=== PATIENT | female | born 1945 | race Caucasian/White ===

== ENCOUNTER 2016-08-12 17:29 | Emergency (ER) | payer MEDICARE, BC ==
[2016-08-12 17:38] VITALS: BP 163/73
[2016-08-12] MEDS ORDERED: Albuterol/Ipratropium 3.0-0.5 MG/3 ML Neb Soln NEB ONE ×2 (18:44→22:30)
[2016-08-12] MEDS ORDERED: Sodium Chloride 0.9% 10 ML Syringe FLUSH PRN (18:44)
[2016-08-12] MEDS ORDERED: predniSONE 20 MG Tab PO ONE (20:51)
--- NOTE | 2016-08-12 21:05 | EDM.PDOC ---
ED HISTORY OF PRESENT ILLNESS - General Chief Complaint: Respiratory Problem Stated Complaint: SOB Time Seen by Provider: 08/12/16 19:03 Source of Information: Reports: Patient, Family (sister) History Limitations: Reports: No limitations - History of Present Illness INITIAL COMMENTS - FREE TEXT/NARRATIVE: Patient presents for evaluation and treatment of shortness of breath. Patient has been short of breath for quite some time. She reports over the last 3 days consistently been worsening. She was seen at the [facility] recently. She was prescribed some antibiotics, nebulizers and prednisone. She started the antibiotics but has not started the prednisone as of yet. She does not feel that the nebulizers are working. She has a past medical history of COPD. Patient reports current symptoms of a nonproductive cough, wheezing and shortness of breath. She denies any fevers, chills, chest pain, abdominal pain, nausea or vomiting. Patient present she did have a chest x-ray done when she saw her primary care provider. No pneumonia evident. She is concerned tonight that she is made to develop a pneumonia. - Related Data Allergies/ADRs: Allergies Allergy/AdvReac Type Severity Reaction Status Date / Time milk Allergy Cannot Verified 08/12/16 17:38 Remember Penicillins Allergy Hives Verified 08/12/16 17:38 codeine AdvReac Disorientat Verified 08/12/16 17:38 ion Home Meds: Home Meds Calcium Carbonate/Vitamin D3 [Calcium 600 + Vit D Tablet] 1 tab PO DAILY [History] FLUoxetine HCl [Prozac] 10 mg PO DAILY 09/01/14 [History] Ferrous Gluconate 2 tab PO DAILY 09/01/14 [History] Losartan Potassium 100 mg PO DAILY 09/01/14 [History] Nortriptyline HCl [Pamelor] 20 mg PO BEDTIME 09/01/14 [History] Sennosides/Docusate Sodium [Cvs Stool Softener-Laxative Tb] 1 tab PO DAILY PRN 09/01/14 [History] Simvastatin [Zocor] 20 mg PO BEDTIME 09/01/14 [History] Thioridazine [Mellaril] 100 mg PO DAILY 09/01/14 [History] metFORMIN [Glucophage] 500 mg PO BIDM 09/01/14 [History] traZODone 50 mg PO BEDTIME 09/01/14 [History] Albuterol Sulfate 2.5 mg IH Q4HR PRN 08/12/16 [History] Azithromycin [Zithromax] 250 mg PO DAILY 08/12/16 [History] Benzonatate [Tessalon Perles] 200 mg PO TID #12 cap 08/13/16 [Rx] Past Medical History HEENT History: Reports: Allergic rhinitis, Sinusitis Cardiovascular History: Reports: High cholesterol, Hypertension Respiratory History: Reports: Bronchitis, recurrent, Other (see below) Other Respiratory History: cough Gastrointestinal History: Reports: Chronic constipation, GERD Genitourinary History: Reports: UTI, recurrent Other Genitourinary History: abnormal kidney function, elevated BUN Other OB/BYN History: breast enlargement Other Musculoskeletal History: chronic neck pain with limited CROM Psychiatric History: Reports: Anxiety, Depression Endocrine/Metabolic History: Reports: Diabetes, type II, Hypothyroidism Hematologic History: Reports: Anemia Other Dermatologic History: perianal excoriation, schamberg's capillaritis - Past Surgical History HEENT Surgical History: Reports: Tonsillectomy GI Surgical History: Reports: Appendectomy, Hernia repair/other Social & Family History - Family History Family Medical History: Noncontributory - Tobacco Use Smoking Status *Q: Former Smoker Years of Tobacco use: 40 Used Tobacco, but Quit: Yes Month Tobacco Last Used: 5 YEARS AGO Second Hand Smoke Exposure: No - Alcohol Use Days Per Week of Alcohol Use: 0 Number of Drinks Per Day: 0 Total Drinks Per Week: 0 - Recreational Drug Use Recreational Drug Use: No Drug Use in Last 12 Months: No ED ROS GENERAL - Review of Systems Review Of Systems: See Below Constitutional: Denies: fever Respiratory: Reports: Shortness of Breath, Wheezing, Cough. Denies: Sputum Cardiovascular: Reports: Orthopnea. Denies: Chest pain GI/Abdominal: Denies: Abdominal pain, Nausea, Vomiting ED EXAM, GENERAL - Physical Exam Exam: See Below Exam Limited By: No limitations General Appearance: alert, WD/WN, mild distress, obese Ears: normal external exam Nose: normal inspection Throat/Mouth: Normal inspection, Normal voice Neck: normal inspection Respiratory/Chest: lungs clear, no accessory muscle use, stridor Cardiovascular: normal peripheral pulses, regular rate, rhythm, no murmur Neurological: alert, oriented, normal cognition Psychiatric: normal affect, normal mood Skin Exam: Warm, Dry, Normal color Course - Vital Signs Last Recorded V/S: Last Vital Signs Temp Pulse 94 08/12/16 17:34 Resp 24 H 08/12/16 17:34 BP 163/73 H 08/12/16 17:34 Pulse Ox 95 08/12/16 22:30 - Orders/Labs/Meds Labs: Laboratory Tests 08/12/16 08/12/16 Range/Units 18:40 18:40 WBC 4.72 (3.98-10.04) K/mm3 RBC 3.83 L (3.98-5.22) M/mm3 Hgb 11.2 (11.2-15.7) gm/L Hct 35.3 (34.1-44.9) % MCV 92.2 (79.4-94.8) fl MCH 29.2 (25.6-32.2) pg MCHC 31.7 L (32.2-35.5) g/dl RDW Std Deviation 44.7 (36.4-46.3) fL Plt Count 166 L (182-369) K/mm3 MPV 10.5 (9.4-12.3) fl Neut % (Auto) 62.3 (34.0-71.1) % Lymph % (Auto) 19.9 (19.3-51.7) % [place] % (Auto) 10.0 (4.7-12.5) % Eos % (Auto) 6.4 H (0.7-5.8) Baso % (Auto) 0.8 (0.1-1.2) % Neut # 2.94 (1.56-6.13) K/mm3 Lymph # 0.94 L (1.18-3.74) K/mm3 [place] # 0.47 H (0.24-0.36) K/mm3 Eos # 0.30 (0.04-0.36) K/mm3 Baso # 0.04 (0.01-0.08) K/mm3 Sodium 138 (136-145) mEq/L Potassium 4.5 (3.5-5.1) mEq/L Chloride 105 (98-107) mEq/L Carbon Dioxide 25 (21-32) mEq/L Anion Gap 12.5 (5-15) BUN 16 (7-18) mg/dL Creatinine 1.2 H (0.55-1.02) mg/dL Est Cr Clr Drug Dosing 33.52 mL/min Estimated GFR (MDRD) 44 (>60) mL/min BUN/Creatinine Ratio 13.3 L (14-18) Glucose 122 H (83-115) mg/dL Calcium 9.0 (8.5-10.1) mg/dL Total Bilirubin 0.3 (0.2-1.0) mg/dL AST 17 (15-37) U/L ALT 27 (14-59) U/L Alkaline Phosphatase 65 (46-116) U/L C-Reactive Protein < 0.2 (<1.0) mg/dL Total Protein 7.5 (6.4-8.2) g/dl Albumin 3.9 (3.4-5.0) g/dl Globulin 3.6 gm/dL Albumin/Globulin Ratio 1.1 (1-2) Mycoplasma pneumon IgM Negative (NEGATIVE) Meds: Medications Discontinued Medications Generic Name Dose Route Start Last Admin Trade Name Freq PRN Reason Stop Dose Admin Albuterol/Ipratropium 3 ml 08/12/16 18:44 08/12/16 18:53 Duoneb 3.0-0.5 Mg/3 Ml NEB 08/12/16 18:45 3 ml ONETIME ONE Administration Albuterol/Ipratropium 3 ml 08/12/16 22:30 08/12/16 22:44 Duoneb 3.0-0.5 Mg/3 Ml NEB 08/12/16 22:31 3 ml ONETIME ONE Administration Benzonatate 200 mg 08/12/16 21:34 08/12/16 21:45 Tessalon Perles PO 08/12/16 21:35 200 mg ONETIME ONE Administration Sodium Chloride 500 mls @ 999 mls/hr 08/12/16 22:46 08/12/16 22:52 Normal Saline IV 08/12/16 23:16 999 mls/hr ONETIME ONE Administration Iopamidol 80 ml 08/12/16 22:36 Isovue-370 (76%) IVPUSH 08/12/16 22:37 ONETIME ONE Prednisone 40 mg 08/12/16 20:51 08/12/16 20:57 Prednisone PO 08/12/16 20:52 40 mg ONETIME ONE Administration Sodium Chloride 10 ml 08/12/16 18:44 08/12/16 18:50 Saline Flush FLUSH 10 ml ASDIRECTED PRN Administration Keep Vein Open - Radiology Interpretation Free Text/Narrative:: chest xray shows a widened mediastinum and and enlarged heart. no consolidations. No change from recent xray. CT of the soft tissues with contrast impression per [facility]: there is a large substernal right thyroid lobe with extension with enhancement. Enhancement and scattered calcifications with heterogeneous enhancement with the lobulation and enhancement are of some concern for neoplasm. Surgical consult recommended, ultrasound suggested for treating a potential future biopsy. - Re-Assessments/Exams Free Text/Narrative Re-Assessment/Exam: 08/12/16 00:34 Patient's labs are as follows: White blood cell count 4.72, hemoglobin 11.2, platelets 166. CRP less than 0.2. Sodium 138, potassium 4.5 chloride 105. Creatinine 1.2. Glucose is 122. Mycoplasma is negative. Influenza is negative. I was about to discharge the patient home and have her continue with her current nebulizers, antibiotics and prednisone as prescribed. However, I was very concerned with the straighter sound that she has. We then ordered a CT of the neck. I reviewed these results with the patient. She was aware of the large thyroid goiter and states that they have been monitoring it. She has not had a biopsy performed as of yet. I feel like this is likely causing her stridor. As for her shortness of breath and this is more likely also related to the large thyroid goiter. she is scheduled to see pulmonology I feel that is a good plan as well given her history. I would also like her to followup with her primary care provider about the goiter. I asked the patient she feels comfortable going home and she states that she does. If she would like to go home at this time. I did offer her inpatient admission which she declined. Will discharge home at this time. Discharge instructions assessment Departure - Departure Time of Disposition: 00:37 Disposition: Home, Self-Care 01 Condition: fair Clinical Impression: Thyroid goiter Prescriptions: Benzonatate [Tessalon Perles] 200 mg PO TID #12 cap Instructions: Goiter Referrals: Deirdre Lilly, [employer]EL[employer] [Primary Care Provider] - Forms: ED Department Discharge Additional Instructions: Hold metformin next 2 days. Continue with current plan of care. Continue on prednisone and azithromycin as prescribed. Follow-up with Deirdre this week. Tessalon perles 1 cap PO tid prn cough. Please return to the ER should your symptoms change or worsen.
[2016-08-12] MEDS ORDERED: Benzonatate 100 MG Cap PO ONE (21:34)
[2016-08-12] MEDS ORDERED: Iopamidol 755 Mg/ML 100 ML Bottle IVPUSH ONE (22:36)
[2016-08-12] MEDS ORDERED: Sodium Chloride 0.9% 500 ML IV ONE (22:46)
--- NOTE | 2016-08-13 08:18 | CT ---
CT neck Technique: Multiple axial sections through the neck were obtained. Intravenous contrast was utilized. Reconstructed sagittal and coronal images were reviewed. Comparison: Previous thyroid ultrasound exam of 03/06/16. Findings: Goitrous enlargement seen of the right lobe of the thyroid gland containing calcifications. Inferior extent is incompletely included on this exam with AP dimension measuring approximately 5.3 cm and transverse dimension measuring approximately 5.5 cm. This causes some displacement of the trachea to the left and anterior side as well as causing some narrowing. Mild mucosal thickening seen within portions of the ethmoid sinuses. Mild mucosal thickening noted within the left maxillary sinus. No air-fluid levels are seen within the sinuses. Parotid salivary glands and submandibular salivary glands are unremarkable. Visualized lung apices are clear. No adenopathy or neck mass is seen. Bone window settings were reviewed which show scattered degenerative change within the spine. Impression: 1. 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 Prior ultrasound showed nodular change within the thyroid gland but I believe the substernal location made this goiter invisible on prior ultrasound exam. 2. Other findings which are felt to be incidental seen on CT study of the neck. Diagnostic code #3 Agree with preliminary report issued by [facility] (preliminary [facility] report dictated on 08/13/16, 1:25 AM Central Time)
--- NOTE | 2016-08-13 08:18 | CR ---
Chest: Two views of the chest were obtained. Comparison: Previous chest x-ray of 08/09/16. Heart is enlarged. Tortuous thoracic aorta is seen. Widening of the upper mediastinum is seen which is stable. Lungs are clear but hyperinflated compatible with emphysematous change. No acute pulmonary vascular congestion or infiltrates are seen. Bony structures are osteopenic. Impression: 1. Stable chest x-ray from prior exam. 2. Nothing acute is appreciated. Diagnostic code #2
== END 2016-08-13 00:51 | disposition home or self-care (01) ==
LOC: JD.ED 17:29
DX: E04.9 Nontoxic goiter, unspecified (principal); I10 Essential (primary) hypertension; E78.00 Pure hypercholesterolemia, unspecified; K21.9 Gastro-esophageal reflux disease without esophagitis; F41.8 Other specified anxiety disorders; E11.9 Type 2 diabetes mellitus without complications; E03.9 Hypothyroidism, unspecified; D64.9 Anemia, unspecified; Z90.49 Acquired absence of other specified parts of digestive tract; Z87.891 Personal history of nicotine dependence; Z98.890 Other specified postprocedural states; Z79.84 Long term (current) use of oral hypoglycemic drugs; Z79.2 Long term (current) use of antibiotics; Z79.899 Other long term (current) drug therapy; Z88.0 Allergy status to penicillin; Z88.5 Allergy status to narcotic agent; Z91.011 Allergy to milk products
CPT/HCPCS: 36415; 70491; 71020; 80053; 85025; 86140; 86738; 87804; 94640; 94664; 96360; 99285; A9270; J7040; J7050; 99284

== ENCOUNTER 2019-11-19 13:59 | Emergency (ER) | payer MEDICARE, BC ==
--- NOTE | 2019-11-19 14:12 | EDM.PDOC ---
ED HPI GENERAL MEDICAL PROBLEM - General Chief Complaint: Cardiovascular Problem Stated Complaint: [facility] Time Seen by Provider: 11/19/19 14:04 - History of Present Illness INITIAL COMMENTS - FREE TEXT/NARRATIVE: 74-year-old female presents the emergency room brought in by [facility] with dizziness nausea vomiting and a low pulse. She was not medicated in route because of the relative risk of bradycardia with Zofran. They did call about 30 minutes prior to arrival and discuss situation with me as to whether they should treat the bradycardia or not they inform me the patient was actually doing well and did not mention that she vomited twice in route. Ever I recommended not treating the bradycardia as I was under the impression she was doing well. Patient informs me the patient was doing well this morning until about 10:00 she says she had bananas and coffee for breakfast. Around 10:00 she developed nausea and vomiting and some dizziness. Her pulse was found to be in the 40s she was not having any associated chest pain or breathing difficulties with this. The patient has some lower extremity edema but this is not new for her. She is not aware of ever having a prior heart attack or stroke - Related Data Allergies Allergy/AdvReac Type Severity Reaction Status Date / Time milk Allergy Cannot Verified 08/12/16 17:38 Remember Penicillins Allergy Hives Verified 08/12/16 17:38 codeine AdvReac Severe Disorientat Verified 11/19/19 14:11 ion Home Meds: Home Meds Calcium Carbonate/Vitamin D3 [Calcium 600 + Vit D Tablet] 1 tab PO DAILY 09/01/14 [History] FLUoxetine HCl [Prozac] 10 mg PO DAILY 09/01/14 [History] Ferrous Gluconate 2 tab PO DAILY 09/01/14 [History] Losartan Potassium 100 mg PO DAILY 09/01/14 [History] Nortriptyline HCl [Pamelor] 50 mg PO BEDTIME 09/01/14 [History] Sennosides/Docusate Sodium [Cvs Stool Softener-Laxative Tb] 1 tab PO DAILY PRN 09/01/14 [History] Simvastatin [Zocor] 20 mg PO BEDTIME 09/01/14 [History] metFORMIN [Glucophage] 500 mg PO BIDM 09/01/14 [History] FLUoxetine [PROzac] 10 mg PO DAILY 11/19/19 [History] Furosemide 40 mg PO DAILY 11/19/19 [History] Ibandronate Sodium 150 mg PO DAILY 11/19/19 [History] Potassium Chloride 10 meq PO DAILY 11/19/19 [History] Temazepam 15 mg PO DAILY 11/19/19 [History] haloperidoL [Haloperidol] 10 mg PO DAILY 11/19/19 [History] hydrOXYzine pamoate [Hydroxyzine Pamoate] 50 mg PO DAILY 11/19/19 [History] Past Medical History HEENT History: Reports: Allergic Rhinitis, Sinusitis Cardiovascular History: Reports: High Cholesterol, Hypertension Respiratory History: Reports: Bronchitis, Recurrent, Other (See Below) Other Respiratory History: cough Gastrointestinal History: Reports: Chronic Constipation, GERD Genitourinary History: Reports: UTI, Recurrent Other Genitourinary History: abnormal kidney function, elevated BUN Other [employer] History: breast enlargement Other Musculoskeletal History: chronic neck pain with limited CROM Psychiatric History: Reports: Anxiety, Depression Endocrine/Metabolic History: Reports: Diabetes, Type II, Hypothyroidism Hematologic History: Reports: Anemia Other Dermatologic History: perianal excoriation, schamberg's capillaritis - Past Surgical History GI Surgical History: Reports: Appendectomy, Hernia Repair/Other Female Surgical History: Reports: Hysterectomy, Tubal Ligation Social & Family History - Family History Family Medical History: Noncontributory ED ROS GENERAL - Review of Systems Review Of Systems: See Below Constitutional: Reports: Fatigue HEENT: Reports: No Symptoms Respiratory: Reports: No Symptoms Cardiovascular: Reports: Lightheadedness. Denies: Chest Pain, Palpitations GI/Abdominal: Reports: Nausea, Vomiting : Reports: No Symptoms Musculoskeletal: Reports: No Symptoms Skin: Reports: No Symptoms Neurological: Reports: No Symptoms Psychiatric: Reports: Other (She is doing well on current medications) Hematologic/Lymphatic: Reports: No Symptoms ED EXAM, GENERAL - Physical Exam Exam: See Below Exam Limited By: No Limitations General Appearance: Alert, No Apparent Distress Eye Exam: Bilateral Eye: Normal Inspection Ears: Normal External Exam, Normal Canal, Hearing Grossly Normal, Normal TMs Nose: Normal Inspection, Normal Mucosa, No Blood Throat/Mouth: Normal Inspection, Normal Lips, Normal Gums, Normal Oropharynx, Normal Voice, No Airway Compromise, Other (Dentures on her uppers they are not in place on the lowers) Head: Atraumatic, Normocephalic Neck: Normal Inspection, Supple, Non-Tender, Full Range of Motion. No: Lymphadenopathy (L), Lymphadenopathy (R) Respiratory/Chest: No Respiratory Distress, Lungs Clear, Normal Breath Sounds Cardiovascular: Regular Rate, Rhythm, Bradycardia ( ) GI/Abdominal: Normal Bowel Sounds, Soft, Non-Tender, Other (She is obese but has a benign abdomen) Back Exam: Other (She has kyphotic changes in her neck and upper thoracic region). No: Normal Inspection, CVA Tenderness (L), CVA Tenderness (R) Neurological: Alert, Oriented, Normal Cognition Psychiatric: Normal Mood. No: Anxious, Depressed Mood Skin Exam: Warm, Dry, Intact EKG INTERPRETATION EKG Date: 11/19/19 Rhythm: Other (Junctional bradycardia) QRS: Other (Low voltage) ST-T: Normal QT: Normal Comparison: NA - No Prior EKG Course - Vital Signs Last Recorded V/S: Last Vital Signs Temp 36.1 C 11/19/19 14:05 Pulse 46 L 11/19/19 14:05 Resp 16 11/19/19 14:05 BP 137/69 11/19/19 14:05 Pulse Ox 97 11/19/19 14:05 - Orders/Labs/Meds Orders: Active Orders 24 hr Category Date Time Status EKG Documentation Completion [RC] STAT Care 11/19/19 14:12 Active Chest 1V Frontal [CR] Stat Exams 11/19/19 14:13 Taken INR,PT,PROTHROMBIN TIME [COAG] Stat Lab 11/19/19 14:25 Received PTT,PARTIAL THROMBOPLSTIN TIME [COAG] Stat Lab 11/19/19 14:25 Received UA RFX TERESSA AND CULT IF INDIC [URIN] Stat Lab 11/19/19 14:13 Ordered Labs: Laboratory Tests 11/19/19 11/19/19 Range/Units 14:25 14:25 WBC 9.38 (3.98-10.04) K/mm3 RBC 4.08 (3.98-5.22) M/mm3 Hgb 11.6 (11.2-15.7) gm/dl Hct 37.1 (34.1-44.9) % MCV 90.9 (79.4-94.8) fl MCH 28.4 (25.6-32.2) pg MCHC 31.3 L (32.2-35.5) g/dl RDW Std Deviation 45.6 (36.4-46.3) fL Plt Count 196 (182-369) K/mm3 MPV 10.2 (9.4-12.3) fl Neut % (Auto) 86.9 H (34.0-71.1) % Lymph % (Auto) 8.7 L (19.3-51.7) % [place] % (Auto) 3.3 L (4.7-12.5) % Eos % (Auto) 0.4 L (0.7-5.8) Baso % (Auto) 0.4 (0.1-1.2) % Neut # (Auto) 8.14 H (1.56-6.13) K/mm3 Lymph # (Auto) 0.82 L (1.18-3.74) K/mm3 [place] # (Auto) 0.31 (0.24-0.36) K/mm3 Eos # (Auto) 0.04 (0.04-0.36) K/mm3 Baso # (Auto) 0.04 (0.01-0.08) K/mm3 Manual Slide Review Normal smear Sodium 140 (136-145) mEq/L Potassium 5.6 H (3.5-5.1) mEq/L Chloride 102 (98-107) mEq/L Carbon Dioxide 27 (21-32) mEq/L Anion Gap 16.6 H (5-15) BUN 30 H (7-18) mg/dL Creatinine 1.7 H (0.55-1.02) mg/dL Est Cr Clr Drug Dosing TNP Estimated GFR (MDRD) 29 (>60) mL/min BUN/Creatinine Ratio 17.6 (14-18) Glucose 194 H (83-115) mg/dL Calcium 10.0 (8.5-10.1) mg/dL Total Bilirubin 0.4 (0.2-1.0) mg/dL AST 21 (15-37) U/L ALT 29 (14-59) U/L Alkaline Phosphatase 67 (46-116) U/L Troponin I 0.079 H* (0.00-0.056) ng/mL Total Protein 7.8 (6.4-8.2) g/dl Albumin 4.0 (3.4-5.0) g/dl Globulin 3.8 gm/dL Albumin/Globulin Ratio 1.1 (1-2) Meds: Medications Discontinued Medications Generic Name Dose Route Start Last Admin Trade Name Jose PRN Reason Stop Dose Admin Lactated Ringer's 500 mls @ 500 mls/hr 11/19/19 14:15 11/19/19 14:34 Ringers, Lactated IV 11/19/19 15:14 500 mls/hr .BOLUS ONE Administration Ondansetron HCl 4 mg 11/19/19 14:14 11/19/19 14:34 Zofran IVPUSH 11/19/19 14:15 4 mg ONETIME ONE Administration - Re-Assessments/Exams Free Text/Narrative Re-Assessment/Exam: 11/19/19 15:47 The patient has remained stable here in the emergency department albeit in a junctional rhythm what it looks like on the monitor which was later confirmed on EKG. With no significant ST-T wave changes. She was given a single dose of Zofran this helped a little with the nausea but she still has some dizziness. Her troponin came back slightly elevated at 0.079. Her potassium is elevated at 5.6. Discussed the situation with on-call group leader semiconductor testing at [facility] in [place] who agreed the patient needs to go there for further evaluation and consider pacemaker placement. The case was then discussed with Dr. Dawson and they accepted the patient in transfer did discuss the troponin and the elevated potassium his recommendation was to hold off on treatment for the potassium at this point and discussed all available relevant information. Her chest x-ray shows cardiomegaly. She has some lower extremity edema but this is not new for her and certainly not worse than normal. Right now we are working on transportation Departure - Departure Time of Disposition: 15:30 Disposition: DC/Tfer to [facility] 02 Clinical Impression: Bradycardia, Junctional rhythm - Discharge Information Forms: ED Department Discharge Sepsis Event Note (ED) - Focused Exam Vital Signs: Vital Signs Temp Pulse Resp BP Pulse Ox 11/19/19 14:05 36.1 C 46 L 16 137/69 97 - My Orders Last 24 Hours: My Active Orders 11/19/19 14:12 EKG Documentation Completion [RC] STAT 11/19/19 14:13 Chest 1V Frontal [CR] Stat UA RFX TERESSA AND CULT IF INDIC [URIN] Stat 11/19/19 14:25 INR,PT,PROTHROMBIN TIME [COAG] Stat PTT,PARTIAL THROMBOPLSTIN TIME [COAG] Stat - Assessment/Plan Last 24 Hours: My Active Orders 11/19/19 14:12 EKG Documentation Completion [RC] STAT 11/19/19 14:13 Chest 1V Frontal [CR] Stat UA RFX TERESSA AND CULT IF INDIC [URIN] Stat 11/19/19 14:25 INR,PT,PROTHROMBIN TIME [COAG] Stat PTT,PARTIAL THROMBOPLSTIN TIME [COAG] Stat
[2019-11-19] MEDS ORDERED: Ondansetron 4 MG/2 ML SDV IVPUSH ONE (14:14)
[2019-11-19] MEDS ORDERED: Lactated Ringers 500 ML IV ONE (14:15)
[2019-11-19 15:03] VITALS: BP 137/69; PULSE 46
--- NOTE | 2019-11-19 19:40 | CR ---
Chest: Portable view of the chest was obtained. Comparison: Prior chest x-ray of 05/05/19. Heart is enlarged. Upper mediastinum is within normal limits for portable technique. Slight density from old left-sided rib fractures are seen within the left mid chest. Lungs show no acute parenchymal change. Old right clavicle fracture is also noted. Scoliosis is also noted within the spine. Impression: 1. Cardiomegaly. 2. Old bony trauma. 3. Nothing acute is appreciated. Diagnostic code #2 This report was dictated in MDT
== END 2019-11-19 18:00 ==
LOC: JD.ED 13:59
DX: I49.8 Other specified cardiac arrhythmias (principal); E78.00 Pure hypercholesterolemia, unspecified; I10 Essential (primary) hypertension; F41.9 Anxiety disorder, unspecified; F32.9 Major depressive disorder, single episode, unspecified; E11.9 Type 2 diabetes mellitus without complications; Z79.84 Long term (current) use of oral hypoglycemic drugs; Z79.899 Other long term (current) drug therapy; Z91.011 Allergy to milk products; Z88.5 Allergy status to narcotic agent; Z88.0 Allergy status to penicillin
CPT/HCPCS: 36415; 71045; 80053; 84484; 85025; 85610; 85730; 93005; 96361; 96374; 99285; J2405; J7120; 93010; 99284